=== PATIENT | male | born 1995 | race Caucasian/White ===

== ENCOUNTER 2020-05-18 08:22 | Inpatient (IN) | payer BC ==
[~2020-05-18] VITALS: Ht 193 cm; Wt 77.8 kg
[2020-05-18] MEDS ORDERED: MAG HYDROX/AL HYDROX/SIMETH ES 30 ML SUSPENSION UDCUP PO PRN (12:30)
[2020-05-18] MEDS ORDERED: LORazepam 2 MG TABLET PO PRN (12:30)
[2020-05-18] MEDS ORDERED: PROMETHAZINE HCL 25 MG TABLET PO PRN (12:30)
[2020-05-18] MEDS ORDERED: OLANZapine 5 MG RAPDIS TABLET PO PRN (12:30)
[2020-05-18] MEDS ORDERED: ACETAMINOPHEN 325 MG TABLET PO PRN (12:30)
[2020-05-18] MEDS ORDERED: ZOLPIDEM TARTRATE 10 MG TABLET PO PRN (12:30)
[2020-05-18] MEDS ORDERED: HydrOXYzine PAMOATE 50 MG CAPSULE PO PRN (12:30)
[2020-05-18] MEDS ORDERED: LORazepam 2 MG TABLET PO ONE (12:30)
[2020-05-18] MEDS ORDERED: TUBERCULIN, PURIFIED PROTEIN DERIVATIVE 5 TU/0.1 ML SYRINGE ID ONE (12:30)
[2020-05-18] MEDS ORDERED: MAGNESIUM HYDROXIDE SUSPENSION 30 ML UDCUP PO PRN (12:30)
[2020-05-18] MEDS ORDERED: LOPERAMIDE HCL 2 MG CAPSULE PO PRN (12:30)
[2020-05-18] MEDS ORDERED: GuaiFENesin/D-METHORPHAN [SUGAR-FREE] 200-20MG/10 ML SYRUP UDCUP PO PRN (12:30)
[2020-05-18 14:24] VITALS: BP 150/72
[2020-05-18 14:31] VITALS: BP 133/85
[2020-05-18] MEDS ORDERED: DIAZEPAM 10 MG TABLET PO PRN (15:45)
[2020-05-18] MEDS ORDERED: DIAZEPAM 10 MG TABLET PO ONE (15:45)
[2020-05-18 16:28] VITALS: BP 127/74
[2020-05-18] MEDS: THIAMINE 100 MG TABLET PO SCH (17:01)
[2020-05-18] MEDS: OLANZapine 5 MG RAPDIS TABLET PO SCH (20:45)
[2020-05-19 02:05] VITALS: BP 126/70
[2020-05-19] MEDS ORDERED: DIAZEPAM 10 MG TABLET PO PRN (07:00)
[2020-05-19 07:32] LABS: BASOPHILS % (AUTO) 0.4 % (0.0-2.0); EOSINOPHILS % (AUTO) 2.2 % (1.0-6.0); HEMATOCRIT 42.7 % (41-53); HEMOGLOBIN 14.2 g/dL (13.5-17.5); LYMPHOCYTES # (AUTO) 2.4 K/uL (1.0-4.8); LYMPHOCYTES % (AUTO) 46.4 % (22.0-44.0); MEAN CORPUSCULAR HEMOGLOBIN 30.9 pg (26.0-34.0); MEAN CORPUSCULAR HGB CONC 33.2 G/dL (31.0-37.0); MEAN CORPUSCULAR VOLUME 93 fL (80-100); MONOCYTES # (AUTO) 0.6 K/uL (0.1-1.0); MONOCYTES % (AUTO) 12.3 % (2.0-9.0); NEUTROPHILS % (AUTO) 38.7 % (40.0-70.0); PLATELET COUNT (AUTO) 264 K/uL (150-450); RED BLOOD CELL COUNT(AUTO) 4.59 MIL/uL (4.50-5.90); RED CELL DISTRIBUTION WIDTH 13.8 % (11.5-14.5)
[2020-05-19 07:55] LABS: HEMOGLOBIN A1C 5.2 % (3.8-5.6)
[2020-05-19 08:06] LABS: ALANINE AMINOTRANSFERASE 26 U/L (12-78); ALBUMIN 3.8 g/dL (3.4-5.0); ALKALINE PHOSPHATASE 59 U/L (46-116); ANION GAP 4 mmol/L (8-16); ASPARTATE AMINOTRANSFERASE 19 U/L (15-37); BILIRUBIN,TOTAL 0.6 mg/dL (0.1-1.0); CALCIUM, TOTAL 8.8 mg/dL (8.8-10.5); CARBON DIOXIDE 30 mmol/L (22-29); CHLORIDE 106 mmol/L (98-107); CHOL/HDL RATIO 2.4 (4.2-7.3); CHOLESTEROL 147 mg/dL (131-200); GLOMERULAR FILTR. RATE CALC > 60 mL/min (>60); GLUCOSE,RANDOM 80 mg/dL (70-110); HDL CHOLESTEROL 62 mg/dL (40-60); LDL CHOL (CALC.) 58 mg/dL (0-130); POTASSIUM 4.4 mmol/L (3.5-5.1); SODIUM SERUM 140 mmol/L (136-145); THYROID STIMULATING HORMONE 0.21 uIU/mL (0.36-3.74); TOTAL PROTEIN, SERUM 6.5 g/dL (6.4-8.2); TRIGLYCERIDES 133 mg/dL (15-150); UREA NITROGEN, BLOOD 11 mg/dL (7-18)
[2020-05-19 08:30] VITALS: BP 124/72
[2020-05-19] MEDS: THIAMINE 100 MG TABLET PO SCH ×2 (09:34→16:58)
[2020-05-19] MEDS: DIAZEPAM 10 MG TABLET PO SCH ×4 (09:34→21:11)
[2020-05-19] MEDS: NALTREXONE HCL 50 MG TABLET PO SCH (09:34)
[2020-05-19] MEDS: OMEGA-3/DHA/EPA/FISH OIL 1,000 MG CAPSULE PO SCH (09:34)
[2020-05-19] MEDS: FOLIC ACID 1 MG TABLET PO SCH (09:35)
[2020-05-19] MEDS: MULTIVITAMINS WITH MINERALS, THERAPEUTIC TABLET PO SCH (09:35)
[2020-05-19] MEDS: FLUoxetine HCL 20 MG CAPSULE PO SCH (09:35)
[2020-05-19 12:30] VITALS: BP 120/76
[2020-05-19] MEDS: NICOTINE 21 MG/24 HOUR PATCH TD PRN (15:13)
[2020-05-19] MEDS ORDERED: GABAPENTIN 400 MG CAPSULE PO ONE (15:45)
[2020-05-19 16:14] VITALS: BP 110/62
[2020-05-19] MEDS ORDERED: PROPRANOLOL HCL 20 MG TABLET PO SCH (17:00)
[2020-05-19] MEDS: GABAPENTIN 400 MG CAPSULE PO SCH ×2 (17:08→21:11)
[2020-05-19] MEDS: OLANZapine 5 MG RAPDIS TABLET PO SCH (21:11)
[2020-05-20 05:25] VITALS: BP 142/97
[2020-05-20 08:12] VITALS: BP 119/73
[2020-05-20] MEDS: DIAZEPAM 10 MG TABLET PO SCH ×4 (08:32→20:40)
[2020-05-20] MEDS: GABAPENTIN 400 MG CAPSULE PO SCH ×4 (09:57→20:40)
[2020-05-20] MEDS: FLUoxetine HCL 20 MG CAPSULE PO SCH (09:57)
[2020-05-20] MEDS: NALTREXONE HCL 50 MG TABLET PO SCH (09:58)
[2020-05-20] MEDS: MULTIVITAMINS WITH MINERALS, THERAPEUTIC TABLET PO SCH (09:58)
[2020-05-20] MEDS: THIAMINE 100 MG TABLET PO SCH ×2 (09:58→16:26)
[2020-05-20] MEDS: OMEGA-3/DHA/EPA/FISH OIL 1,000 MG CAPSULE PO SCH (09:58)
[2020-05-20] MEDS: FOLIC ACID 1 MG TABLET PO SCH (10:20)
[2020-05-20] MEDS: PROPRANOLOL HCL 10 MG TABLET PO SCH ×2 (10:43→16:26)
[2020-05-20] MEDS ORDERED: FLUO-191 PO (15:17)
[2020-05-20] MEDS ORDERED: OMEG-135 PO (15:17)
[2020-05-20] MEDS ORDERED: GABA-1201 PO (15:17)
[2020-05-20] MEDS ORDERED: NALT50TA PO (15:17)
[2020-05-20] MEDS ORDERED: PROP10TA72 PO (15:17)
[2020-05-20] MEDS ORDERED: OLAN5TAB30 PO (15:17)
[2020-05-20 16:00] VITALS: BP 139/90
[2020-05-20 16:26] VITALS: BP 139/90
[2020-05-20] MEDS: NICOTINE 21 MG/24 HOUR PATCH TD PRN (16:27)
[2020-05-20] MEDS: OLANZapine 5 MG RAPDIS TABLET PO SCH (20:40)
[2020-05-21 04:04] VITALS: BP 123/78
[2020-05-21 05:49] VITALS: BP 101/61
[2020-05-21] MEDS ORDERED: DIAZEPAM 5 MG TABLET PO PRN (07:00)
[2020-05-21] MEDS: MULTIVITAMINS WITH MINERALS, THERAPEUTIC TABLET PO SCH (08:22)
[2020-05-21] MEDS: PROPRANOLOL HCL 10 MG TABLET PO SCH (08:22)
[2020-05-21] MEDS: FLUoxetine HCL 20 MG CAPSULE PO SCH (08:22)
[2020-05-21] MEDS: THIAMINE 100 MG TABLET PO SCH (08:22)
[2020-05-21] MEDS: OMEGA-3/DHA/EPA/FISH OIL 1,000 MG CAPSULE PO SCH (08:22)
[2020-05-21] MEDS: NALTREXONE HCL 50 MG TABLET PO SCH (08:22)
[2020-05-21] MEDS: GABAPENTIN 400 MG CAPSULE PO SCH (08:22)
[2020-05-21] MEDS: FOLIC ACID 1 MG TABLET PO SCH (08:23)
[2020-05-21 08:39] VITALS: BP 129/77
[2020-05-21] MEDS ORDERED: DIAZEPAM 5 MG TABLET PO SCH (09:00)
[2020-05-22] MEDS ORDERED: DIAZEPAM 5 MG TABLET PO PRN (07:00)
== END 2020-05-21 09:00 | disposition home or self-care (01) | DRG 885 ==
LOC: B3A 12:27
PROVIDERS: ADMIT Psychiatry & Neurology Psychiatry; ATTEND Psychiatry & Neurology Psychiatry
DX: F25.9 Schizoaffective disorder, unspecified (principal); G40.409 Other generalized epilepsy and epileptic syndromes, not intractable, without status epilepticus; Z79.899 Other long term (current) drug therapy; Z81.4 Family history of other substance abuse and dependence; F10.10 Alcohol abuse, uncomplicated; Z55.9 Problems related to education and literacy, unspecified; Z59.9 Problem related to housing and economic circumstances, unspecified; Z65.3 Problems related to other legal circumstances
CPT/HCPCS: 83036; 84439; 84443; 86592